=== PATIENT | female | born 1975 | race Caucasian/White ===

== ENCOUNTER 2022-04-05 14:58 | Emergency (ER) | payer OTHER, SELFPAY ==
--- NOTE | ~2022-04-05 | CT_ITS ---
EXAMINATION: CT head/brain wo IV con CLINICAL INFORMATION: Reason for Exam headache COMPARISON: None. TECHNIQUE: Contiguous axial imaging was performed from the skull base to vertex without intravenous contrast. Sagittal and coronal reformatted images were obtained. This CT examination was performed using dose optimization techniques as appropriate, variously including the following: * Automated exposure control * Adjustment of mA and/or kV according to patient size (this includes techniques or standardized protocols for targeted exams where dose is matched to indication/reason for exam; i.e. extremities or head) Use of iterative reconstruction technique DLP: 604 mGy-cm FINDINGS: No acute osseous or soft tissue abnormality. The mastoid air cells and visualized portions of the paranasal sinuses are well aerated. There is no evidence of acute intracranial hemorrhage or territorial infarction. No abnormal mass effect or midline shift is seen. Reyes to white matter differentiation is well preserved. No extra-axial fluid collections are identified. No hydrocephalus. No significant volume loss. There is no abnormal attenuation within the brain parenchyma. CT/CT head/brain wo IV con IMPRESSION: No acute intracranial abnormality including hemorrhage, mass effect, hydrocephalus, or acute territorial edematous infarction.
[2022-04-05 15:05] VITALS: BP 110/78; PULSE 87; RESP 16; TEMP 36.6; O2SAT 97; BMI 28.3
--- NOTE | 2022-04-06 00:12 | ED_ITS ---
HPI - Headache General Chief Complaint: Headache Stated Complaint: slurred speech,head pressure Time Seen by Provider: 04/05/22 19:03 Source: patient Mode of arrival: ambulatory Limitations: no limitations History of Present Illness HPI Narrative: 46 yo female with hx of anemia, hypothyroidism usually on 125mcg of levothyroxine has not been on it since January. Has had headaches since November after eating. She notes since January she has had episodes of slurred speech as well. She does not have a PCP to have her headaches checked out. MD elicited complaint: headache Onset (ago): month(s) (2.5) Onset description: gradually and while eating Location: diffuse Quality & Timing: dull, intermittent and progressively worsening Exacerbating factors: other (eating is a trigger) Relieving factors: nothing Context: occurred at rest Associated symptoms: other (notes facial swelling and also puffiness around feet) Treatments prior to arrival: none Related Data Previous Rx's Medication Instructions Recorded levothyroxine 100 mcg capsule 100 mcg PO DAILY #30 caps 04/06/22 Allergies Allergy/AdvReac Type Severity Reaction Status Date / Time No Known Allergies Allergy Verified 04/06/22 00:19 Review of Systems Review of Systems: Constitutional : No Fever, No Chills, No Fatigue ENT/Mouth : No sore throat, No Rhinorrhea Eyes: No Eye Pain, No Swelling, No Redness Cardiovascular : No Chest Pain, No SOB, No Dyspnea on Exertion, pos edema Respiratory : No Cough, No Sputum Gastrointestinal : No Nausea, No Vomiting, No Diarrhea, No abdominal Pain Genitourinary : No Dysuria, No Urinary Frequency, No Hematuria, Musculoskeletal : No joint pain, No Myalgias, No Joint Swelling Skin : No Skin Lesions, No rash Neuro : No Weakness, No Numbness, No Dizziness, positive Headache Psych : No Anxiety/Panic, No Depression Heme/Lymph: No Bruising, No Bleeding,No Lymphadenopathy Endocrine : No Polyuria, No Polydipsia All other systems reviewed and are negative [facility] Past Medical History Attestation statement: The following information was validated with the patient. Medical History Anemia Hypothyroidism Social History Social History (Updated 04/06/22 @ 00:35 by Gila Kumari DO) Patient Tobacco Use Status: Never used Tobacco Advance Directives: No Advance Directives Information Provided: Yes Physical Exam Vital Signs: Vital Signs: Last Vital Signs Temp 98 F 04/05/22 15:05 Pulse 64 04/06/22 02:00 Resp 16 04/06/22 02:00 BP 103/67 04/06/22 02:00 Pulse Ox 97 04/06/22 02:00 O2 Del Method 04/06/22 02:00 BMI result Body Mass Index 28.3 Appearance: Alert. Oriented X3. No acute distress. Eyes: Pupils equal, round and reactive to light. ENT: Pharynx normal. Neck: Normal inspection. Neck supple. CVS: Normal heart rate and rhythm. Pulses normal. Respiratory: No respiratory distress. Breath sounds normal. Abdomen: Soft and non-tender. Skin: Skin warm and dry. Normal skin color. Normal skin turgor. Extremities: non pitting lower extremity edema. No calf ttp Neuro: Oriented X 3. No motor deficit. No sensory deficit. normal reflexes Course Course Course Narrative: hemoglobin in January 2022 7.7 patient aware she is 6.5 today the patient is not sure she wants to have a blood transfusion today aware of risks of including heart attack, strain on organs, cardiomyopathy states she is not interested in transfusion today. 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 Cannot tolerate PO Fe or Fe infusions (allergic reaction). She was seeing a assistant store leader and they had her on medications for anemia which helped but she stopped taking them. given endocrine number will start on 100mcg of levothyroxine (1.6mcg/kg) can see her PCP in a few weeks, does not want a transfusion, has no clinical signs of myxedema coma MDM - Headache MDM Narrative Medical decision making narrative: 46 yo female with hx of anemia and hypothyroidism comes in with a few months of headaches and then slurred speech not taking her levothyroxine. At this time will need labs including TSH/T4 levels. Will obtain CT head for mass. Her symptoms could be related to the fact she is not taking her levothyroxine. She has no bradycardia, her reflexes are normal she exhibits no signs of myxedema coma. Lab Data Result diagrams: 04/06/22 00:45 04/06/22 00:45 Labs: Lab Results 04/06/22 04/06/22 04/06/22 Range/Units 00:45 00:45 00:45 WBC 5.7 (4.8-10.8) X10*3/uL RBC 2.70 L (4.20-5.50) X10*6/uL Hgb 6.5 L* (12.0-16.0) g/dl Hct 22.0 L (37.0-47.0) % MCV 81.5 (80.0-98.0) fL MCH 24.1 L (27.0-33.0) pg MCHC 29.5 L (31.0-35.0) g/dl RDW 14.1 (11.0-16.0) % Plt Count 304 (160-400) X10*3/uL MPV 9.6 (9.4-12.3) fL Immature Gran % (Auto) 0.2 (0.0-0.4) % Neut % (Auto) 42.3 L (45-73) % Lymph % (Auto) 45.8 H (20-40) % [place] % (Auto) 7.2 (2-11) % Eos % (Auto) 3.1 (0-4) % Baso % (Auto) 1.4 (0-2) % Lymph # (Auto) 2.6 (1.2-4.9) X10*3/uL [place] # (Auto) 0.4 (0.1-1.2) X10*3/uL Eos # (Auto) 0.2 (0.0-0.4) X10*3/uL Baso # (Auto) 0.1 (0.0-0.2) X10*3/uL Abs Immat Gran (auto) 0.01 (0.00-0.03) X10*3/uL Absolute Neuts (auto) 2.4 (2.0-8.3) x10*3/uL Absolute Nucleated RBC 0.000 (0.0-0.012) X10*3/uL Nucleated RBC % (auto) 0.0 (0.0-0.2) /100WBC Sodium 138 (135-145) mmol/L Potassium 4.2 (3.3-5.1) mmol/L Chloride 103 (96-108) mmol/L Carbon Dioxide 24 (22-29) mmol/L Anion Gap 15 (12-20) BUN 14 (9-16) mg/dL Creatinine 1.39 (0.5-1.4) mg/dL Estim Creat Clear Calc 47.4 Estimated GFR 41 Random Glucose 82 (60-115) mg/dL Calcium 8.5 (8.4-10.2) mg/dL Magnesium 2.1 (1.6-2.6) mg/dL Total Bilirubin 0.2 (0.0-1.0) mg/dL Direct Bilirubin < 0.2 (0.0-0.5) mg/dL AST 32 H (5-31) U/L ALT 9 (0-31) U/L Alkaline Phosphatase 27 L (39-117) U/L B-Natriuretic Peptide < 10 (<100) pg/mL Total Protein 7.1 (6.5-8.0) g/dL Albumin 4.0 (3.5-5.0) g/dL Lipase 20 (8-78) U/L TSH 76.75 H (0.32-4.0) uIU/mL Free T4 0.45 L (0.71-1.85) ng/dL Beta HCG, Quant < 2 mIU/mL Discharge Plan Discharge Clinical Impression: Anemia Qualifiers: Anemia type: unspecified type Qualified Code(s): D64.9 - Anemia, unspecified Hypothyroidism Qualifiers: Hypothyroidism type: unspecified Qualified Code(s): E03.9 - Hypothyroidism, unspecified Patient Disposition: Home, Self-Care Instructions: Hypothyroidism (ED), Anemia (ED) Additional Instructions: return to ED for any worsening symptoms or concerns please follow up with endocrinology, hematology and your primary care doctor your hemoglobin was 6.5 - you were offered a transfusion but declined. Prescriptions: New levothyroxine 100 mcg capsule 100 mcg PO DAILY Qty: 30 1RF Referrals: Lexus Arzola MD [Physician] - 1 week Interventions: ED Discharge Assessment Last Done: 04/06/22 02:44 Discharge Date/Time: 04/06/22 02:47
[2022-04-06 00:16] VITALS: BP 124/86; PULSE 75; RESP 18; O2SAT 100
[2022-04-06 00:49] LABS: MANUAL DIFF FLAG NO
[2022-04-06 00:51] LABS: Basophils Absolute Auto 0.1 X10*3/uL (0.0-0.2); Basophils Percent Auto 1.4 % (0-2); Eosinophils Absolute Auto 0.2 X10*3/uL (0.0-0.4); Eosinophils Percent Auto 3.1 % (0-4); Imm Gran Abs Auto 0.01 X10*3/uL (0.00-0.03); Imm Gran Pct Auto 0.2 % (0.0-0.4); Lymphocytes Absolute Auto 2.6 X10*3/uL (1.2-4.9); Lymphocytes Percent Auto 45.8 % (20-40); Mean Corpuscular HGB Conc 29.5 g/dl (31.0-35.0); Mean Corpuscular Hemoglobin 24.1 pg (27.0-33.0); Mean Corpuscular Volume 81.5 fL (80.0-98.0); Mean Platelet Volume 9.6 fL (9.4-12.3); Monocytes Absolute Auto 0.4 X10*3/uL (0.1-1.2); Monocytes Percent Auto 7.2 % (2-11); Neutrophils Absolute Auto 2.4 x10*3/uL (2.0-8.3); Neutrophils Percent Auto 42.3 % (45-73); Platelet Count 304 X10*3/uL (160-400); Red Cell Distribution Width 14.1 % (11.0-16.0); White Blood Count 5.7 X10*3/uL (4.8-10.8)
[2022-04-06 00:54] LABS: Hemoglobin 6.5 g/dl (12.0-16.0)
[2022-04-06 01:16] LABS: B Type Natriuretic Peptide < 10 pg/mL (<100)
[2022-04-06 01:18] LABS: Alanine Aminotransferase 9 U/L (0-31); Alkaline Phosphatase 27 U/L (39-117); Anion Gap 15 (12-20); Aspartate Amino Transferase 32 U/L (5-31); Bilirubin Direct < 0.2 mg/dL (0.0-0.5); Bilirubin Total 0.2 mg/dL (0.0-1.0); Blood Urea Nitrogen 14 mg/dL (9-16); Calcium 8.5 mg/dL (8.4-10.2); Carbon Dioxide 24 mmol/L (22-29); Chloride 103 mmol/L (96-108); Creatinine Clr Calc Pharmacy 47.4; Estimated Glomerular Filt Rate 41; Glucose Random 82 mg/dL (60-115); Lipase 20 U/L (8-78); Potassium 4.2 mmol/L (3.3-5.1); Sodium 138 mmol/L (135-145); Total Protein 7.1 g/dL (6.5-8.0)
[2022-04-06 01:26] LABS: Magnesium 2.1 mg/dL (1.6-2.6)
[2022-04-06 01:38] LABS: HCG Quantitative < 2 mIU/mL; TSH reflex Free T4 76.75 uIU/mL (0.32-4.0)
[2022-04-06 02:00] VITALS: BP 103/67; PULSE 64; RESP 16; O2SAT 97
[2022-04-06 02:19] LABS: Free T4 (Free Thyroxine) 0.45 ng/dL (0.71-1.85)
== END 2022-04-06 02:47 | disposition home or self-care (01) ==
PROVIDERS: Emergency Provider Emergency Medicine
DX: R51.9 Headache, unspecified (principal); R47.81 Slurred speech; D64.9 Anemia, unspecified; E03.9 Hypothyroidism, unspecified; Z79.899 Other long term (current) drug therapy
CPT/HCPCS: 36415; 70450; 80048; 80076; 83690; 83735; 83880; 84439; 84443; 84702; 85025; 99283; 99284